=== PATIENT | male | born 1950 | race Caucasian/White ===

== ENCOUNTER 2021-04-26 11:19 | Emergency (ER) | payer MEDICARE, OTHER ==
[2021-04-26] MEDS ORDERED: MOBIC15 MG PO (13:10)
== END 2021-04-26 13:27 | disposition home or self-care (01) ==
LOC: ER1 11:19
DX: S83.91XA Sprain of unspecified site of right knee, initial encounter (principal); M23.91 Unspecified internal derangement of right knee; M17.11 Unilateral primary osteoarthritis, right knee; I10 Essential (primary) hypertension; E11.9 Type 2 diabetes mellitus without complications; W01.10XA Fall on same level from slipping, tripping and stumbling with subsequent striking against unspecified object, initial encounter; Y92.009 Unspecified place in unspecified non-institutional (private) residence as the place of occurrence of the external cause
CPT/HCPCS: 73564; 99283